=== PATIENT | female | born 1950 | race Caucasian/White ===

== ENCOUNTER 2022-01-12 09:44 | Outpatient (RCR) | payer SELFPAY | END 2022-03-21 10:22 | disposition home or self-care (01) | PROVIDERS: Visit Provider Chiropractor | DX: Z76.0 Encounter for issue of repeat prescription (principal); Z51.89 Encounter for other specified aftercare | CPT/HCPCS: 97162; 97760 ==

== ENCOUNTER 2022-02-23 15:52 | Outpatient (CLI) | payer SELFPAY ==
[2022-02-23 18:27] LABS: Basophils Absolute Auto 0.06 K/uL (0.00-0.30); Basophils Percent Auto 0.7 % (0.0-3.0); Chloride* 102 mmol/L (96-114); Eosinophils Absolute Auto 0.12 K/uL (0.00-0.50); Eosinophils Percent Auto 1.4 % (0.0-7.0); Hematocrit 43.4 % (33.0-51.0); Hemoglobin* 14.2 gm/dL (12.0-16.0); Immature Granulocytes Abs Auto 0.01 K/uL (0.00-0.30); Immature Granulocytes Pct Auto 0.1 %; Lymphocytes Absolute Auto 2.81 K/uL (0.90-2.90); Lymphocytes Percent Auto 33.5 % (20-44); Mean Corpuscular HGB Conc 33 gm/dL (32-36); Mean Corpuscular Hemoglobin 31 pg (26-34); Mean Corpuscular Volume 94 fL (80-100); Neutrophils Absolute Auto 4.64 K/uL (1.7-7.0); Neutrophils Percent Auto 55.3 % (42.0-72.0); Platelet Count* 353 K/uL (140-440); RDW Coefficient of Variation % 13.7 % (11.5-15.5); Red Blood Count 4.63 m/uL (4.00-5.20); Sodium* 140 mmol/L (135-149)
[2022-02-23 18:28] LABS: Potassium* 4.1 mmol/L (3.6-5.1)
[2022-02-23 18:30] LABS: Carbon Dioxide* 29 mmol/L (20-32); Cholesterol* 181 mg/dL (90-199); Creatinine* 0.5 mg/dL (0.5-1.5); Estimated Glomerular Filt Rate 100 ml/min
[2022-02-23 18:31] LABS: Blood Urea Nitrogen* 13 mg/dL (7-30); Glucose* 95 mg/dL (60-115); HDL Cholesterol* 70 mg/dL (>=50); LDL Cholesterol Calculated 89 mg/dL (<100); Triglycerides* 109 mg/dL (40-149)
[2022-02-23 18:36] LABS: Slide Review Reflex No
[2022-02-23 19:06] LABS: Ferritin* 42.7 ng/mL (11.1-264.0)
== END 2022-02-23 15:53 | disposition home or self-care (01) ==
LOC: NPINS 15:54 → LAB 16:14
DX: I25.10 Atherosclerotic heart disease of native coronary artery without angina pectoris (principal); E87.6 Hypokalemia; Z79.899 Other long term (current) drug therapy
CPT/HCPCS: 36415; 80048; 80061; 82728; 85025

== ENCOUNTER 2022-09-10 09:30 | Outpatient (RCR) | payer SELFPAY | END 2023-01-08 23:59 | disposition home or self-care (01) | PROVIDERS: Visit Provider Chiropractor | DX: M99.05 Segmental and somatic dysfunction of pelvic region (principal); M99.04 Segmental and somatic dysfunction of sacral region; M99.02 Segmental and somatic dysfunction of thoracic region; Z51.89 Encounter for other specified aftercare | CPT/HCPCS: 97012; 97110; 97140; 97162 ==

== ENCOUNTER 2022-10-24 11:00 | Outpatient (RCR) | payer SELFPAY | END 2023-02-20 15:07 | disposition home or self-care (01) | PROVIDERS: Visit Provider Orthopaedic Surgery | DX: M79.602 Pain in left arm (principal); M54.12 Radiculopathy, cervical region; M54.6 Pain in thoracic spine; Z51.89 Encounter for other specified aftercare | CPT/HCPCS: 97012; 97110; 97140; 97162; 97535 ==

== ENCOUNTER 2023-03-19 16:00 | Outpatient (CLI) | payer OTHER, SELFPAY ==
[2023-03-22 07:36] LABS: Anti-Nuclear Ab(ANA)IgG ELISA None Detected (None Detected)
[2023-03-22 10:37] LABS: Rheumatoid Factor <10 IU/mL (0-14)
[2023-03-22 17:10] LABS: Lyme ELISA Reflex 1.24 IV (<=0.90); Lyme Mod 2Tier Test Interp Positive (Negative)
== END 2023-03-19 16:01 | disposition home or self-care (01) ==
DX: M13.842 Other specified arthritis, left hand (principal); M13.841 Other specified arthritis, right hand
CPT/HCPCS: 36415; 84443; 86039; 86431; 86618; 86666

== ENCOUNTER 2023-06-12 10:15 | Outpatient (CLI) | payer OTHER, SELFPAY ==
[2023-06-12 11:18] LABS: Cholesterol* 202 mg/dL (90-199)
[2023-06-12 11:19] LABS: Alanine Aminotransferase* 21 U/L (4-35); HDL Cholesterol* 70 mg/dL (>=50); LDL Cholesterol Calculated 114 mg/dL (<100); Triglycerides* 89 mg/dL (40-149)
== END 2023-06-12 10:16 | disposition home or self-care (01) ==
LOC: LAB 10:20
PROVIDERS: Visit Provider Internal Medicine Cardiovascular Disease
DX: E78.5 Hyperlipidemia, unspecified (principal)
CPT/HCPCS: 36415; 80061; 84460

== ENCOUNTER 2024-09-21 10:45 | Outpatient (RCR) | payer OTHER, SELFPAY | END 2025-01-19 23:59 | disposition home or self-care (01) | PROVIDERS: Visit Provider Chiropractor | DX: M99.03 Segmental and somatic dysfunction of lumbar region (principal); M99.04 Segmental and somatic dysfunction of sacral region; M99.01 Segmental and somatic dysfunction of cervical region; M99.02 Segmental and somatic dysfunction of thoracic region; M54.2 Cervicalgia; M54.50 Low back pain, unspecified; Z51.89 Encounter for other specified aftercare | CPT/HCPCS: 97110; 97140; 97162 ==